=== PATIENT | female | born 1980 | race African-American/Black ===

== ENCOUNTER 2016-10-23 19:44 | Emergency (ER) | payer OTHER ==
[2016-10-23] MEDS ORDERED: NORCO-10 PO ONE (20:39)
[2016-10-23] MEDS ORDERED: PHENERGAN IM ONE (20:39)
--- NOTE | 2016-10-23 20:40 | PROVIDER DOCUMENTATION ---
HPI-General Adult - General Chief Complaint: Fall Stated Complaint: FELL 10/18/16, ABD PX Time Seen by Provider: 10/23/16 20:12 Source: patient Allergies/Adverse Reactions: Patient Allergies Allergy/AdvReac Type Severity Reaction Status Date / Time No Known Allergies Allergy Verified 04/27/16 05:43 Home Medications: Home Medication List Medication Instructions Recorded Confirmed Last Taken Type Linaclotide [Linzess] 04/05/16 Unknown History Aripiprazole [Abilify] 2 mg PO DAILY 10/23/16 10/23/16 Unknown History Cephalexin [Keflex] 500 mg PO BID #14 capsule 10/23/16 Unknown Rx Clonazepam [Klonopin] 1 mg PO DAILY 10/23/16 10/23/16 Unknown History Ibuprofen [Motrin] 800 mg PO Q8H PRN PRN #20 tablet 10/23/16 Unknown Rx Omeprazole [Prilosec] 20 mg PO DAILY@0700 #20 capsule 10/23/16 Unknown Rx Promethazine [Phenergan] 25 mg PO Q6H PRN PRN #20 tablet 10/23/16 Unknown Rx - History of Present Illness -Gen Adult Nature of Presenting Problems: Pt is a 35 y/o F c chief complaint of neck pain and lower back pain after she fell backwards and landed on her back several days ago. Pt denies any loss of sensation but she does state she has had increased frequency of urination c dysuria. Pt also reports R sided flank pain radiating to her groin and suprapubic tenderness. She also reports mild nausea but no abd pain or vomiting. Pt has a h/o multiple mental health dx. On arrival, pt is afebrile and in minimal distress. Review of Systems - Adult - REVIEW OF SYSTEMS - ADULT Constitutional: reports: no symptoms reported. denies: chills, fatique Eyes: reports: no symptoms reported. denies: blurred vision, double vision Ears, Nose, Mouth & Throat: reports: no symptoms reported. denies: ear pain, nose pain, throat pain Cardiovascular: reports: no symptoms reported. denies: chest pain, orthopnea Respiratory: reports: no symptoms reported. denies: cough, shortness of breath Gastrointestinal: reports: see HPI, nausea. denies: abdominal pain Genitourinary: reports: dysuria, flank pain, frequent UTI's, incontinence, urgency Musculoskeletal: reports: back pain, neck pain. denies: bone pain, joint pain Integumentary: reports: no symptoms reported. denies: hives, itching, rash Neurological: reports: no symptoms reported. denies: numbness, paresthesia Psychiatric: reports: no symptoms reported. denies: anxiety, emotional problems Endocrine: reports: no symptoms reported. denies: cold intolerance, heat intolerance Hematologic/Lymphatic: reports: no symptoms reported. denies: blood clots, low blood count Allergic/Immunologic: reports: no symptoms reported. denies: allergic reactions , food allergy All Other Systems: Reviewed and Negative Past History - Adult - PAST MEDICAL HISTORY-ADULT Review of Records: reports: Old Records Reviewed, Nursing Assessment Review, Medications Reviewed, Social history reviewed & non-contributory. Major Childhood Illnesses: reports: denies history Cardiovascular: reports: denies history Respiratory: reports: denies history Gastrointestinal: reports: denies history Obstetrical/Gynecological: reports: denies history Genitourinary: reports: denies history Musculoskeletal: reports: denies history Neurological: reports: denies history Psychiatric: reports: psychiatric problems, schizophrenia, other (paranoia) Endocrine/Immune: reports: denies history Other Conditions: reports: denies history - PRIOR SURGERIES/PROCEDURES Surgical/Procedure History: reports: BTL - PRIOR HOSPITALIZATIONS Prior Hospitalizations: reports: for similar symptoms, psychiatric or rehab - IMMUNIZATION STATUS Childhood Immunizations: See Nurse Assessment Flu Vaccine: See Nurse Assessment - FAMILY HISTORY Family History: reviewed, not pertinent - SOCIAL HISTORY Smoking: denies Substance Use: none/never Alcohol Use Frequency: never Living Situation: family Physical Exam-General - PHYSICAL EXAM-ADULT Initial Vital Signs Reviewed: Yes - CONSTITUTIONAL General Appearance: appears well, alert, no apparent distress, anxious - EYES Eyes: PERRL/EOMI, pink conjunctivae - HEAD, EARS, NOSE, MOUTH & THROAT HENMT: normocephalic/atraumatic, moist mucous membranes, normal ENT inspection - NECK Neck: full range of motion, supple, C-spine tenderness, tender lateral - RESPIRATORY Respiratory: chest non-tender, lungs clear, normal breath sounds - CARDIOVASCULAR Cardiovascular: normal peripheral pulses, regular rate, rhythm, no edema - GASTROINTESTINAL (ABDOMEN) Abdominal Exam: normal bowel sounds, soft, tenderness (suprapubic tenderness, L flank tenderness). negative: guarding, rebound, hepatomegaly, spleenomegaly, McBurney's point tenderness, Harrison's sign, obturator sign, prominent aortic pulsations, psoas, Rovsing's sign - LYMPHATIC Lymphatic: no adenopathy - MUSCULOSKELETAL Back Exam: muscle spasm Extremity: normal range of motion, non-tender, normal gait Progress - PLAN OF CARE/RESULTS Progress/Plan/Lab Results: Orders Category Date Time Status NPO Diet 10/23/16 20:38 Active CERVICAL SPINE W/O CONTRAST [CT] Stat Exams 10/23/16 20:38 Taken RENAL STONE SEARCH [CT] Stat Exams 10/23/16 20:38 Taken AMYLASE [CHEM] Stat Lab 10/23/16 21:15 Completed CBC WITH ELECTRONIC DIFF [HEME] Stat Lab 10/23/16 21:15 Completed COMPREHENSIVE METABOLIC PANEL [CHEM] Stat Lab 10/23/16 21:15 Completed LIPASE [CHEM] Stat Lab 10/23/16 21:[address] W/POSS RFLX CULT [URINALYSIS] Stat Lab 10/23/16 21:10 Completed URINE CULTURE [RM] Routine Lab 10/23/16 21:45 Received CefTRIAXONE [Rocephin] Med 10/23/16 22:21 Discontinued 1 gm IM NOW ONE Hydrocodone/APAP 10 mg/325 mg [[place]-10] Med 10/23/16 20:39 Discontinued 1 each PO NOW ONE Lidocaine 1% Pf [Xylocaine-Mpf 1%] Med 10/23/16 22:21 Discontinued 5 ml INJ NOW ONE Promethazine [Phenergan] Med 10/23/16 20:39 Discontinued 25 mg IM NOW ONE Laboratory Tests 10/23/16 10/23/16 10/23/16 21:10 21:15 21:15 WBC 11.23 H RBC 3.85 L Hgb 11.7 L Hct 34.8 L MCV 90.4 MCH 30.4 MCHC 33.6 RDW Std Deviation 12.7 Plt Count 146 MPV 10.2 Immature Gran % (Auto) 0.4 Neut % (Auto) 86.3 H Lymph % (Auto) 6.9 L [place] % (Auto) 6.1 Eos % (Auto) 0.1 Baso % (Auto) 0.2 Immature Gran # (Auto) 0.04 Neut # (Auto) 9.70 H Lymph # (Auto) 0.77 L [place] # (Auto) 0.69 H Eos # (Auto) 0.01 Baso # (Auto) 0.02 Sodium 136 Potassium 3.1 L Chloride 101 Carbon Dioxide 25 Anion Gap 10 BUN 5 L Creatinine 0.9 Estimated GFR/1.73 m2 > 60 BUN/Creatinine Ratio 6 Glucose 100 Calculated Osmolality 269 Calcium 9.5 Total Bilirubin 0.60 AST 29 ALT 39 H Alkaline Phosphatase 92 Total Protein 7.1 Albumin 4.0 Globulin 3.0 Albumin/Globulin Ratio 1.0 Amylase 37 Lipase 13 Urine Source CLEAN CATCH Urine Color YELLOW Urine Clarity CLEAR Urine pH 6.5 Ur Specific [place] 1.010 Urine Protein 1+(30 mg/dL) A Urine Ketones TRACE Urine Blood 4+ Urine Nitrite NEGATIVE Urine Bilirubin NEGATIVE Urine Urobilinogen 4+(12 mg/dL) Urine Microscopic RBC TNTC A Urine WBC 2+ A Urine Microscopic WBC 20-40 A Ur Epithelial Cells <10 Urine Bacteria 3+ Urine Glucose NEGATIVE Vital Signs - 24 hr 10/23/16 10/23/16 19:59 21:14 Temperature 98.2 F Pulse Rate 114 H Respiratory 18 Rate Blood Pressure 152/72 O2 Sat by Pulse 98 Oximetry - CT/MRI 1 CT Study: Cervical Spine Impression: Normal CT Results: nad - prelim radiology report 2 CT Study: Renal Stone Impression: Normal CT Results: nad - prelim radiology report Departure - Departure Time of Disposition Order: 22:23 DIAGNOSIS: Back pain Qualifiers: Back pain location: low back pain Chronicity: acute Back pain laterality: midline Sciatica presence: without sciatica Qualified Code(s): M54.5 - Low back pain Fall Qualifiers: Encounter type: initial encounter Qualified Code(s): W19.XXXA - Unspecified fall, initial encounter UTI (urinary tract infection) Qualifiers: Urinary tract infection type: site unspecified Hematuria presence: without hematuria Qualified Code(s): N39.0 - Urinary tract infection, site not specified Disposition: HOME 01 Certified Medical Emergency: Emergent Condition: Stable Prescriptions: Cephalexin [Keflex] 500 mg PO BID #14 capsule Ibuprofen [Motrin] 800 mg PO Q8H PRN PRN #20 tablet PRN Reason: inflammation Promethazine [Phenergan] 25 mg PO Q6H PRN PRN #20 tablet PRN Reason: Nausea Omeprazole [Prilosec] 20 mg PO DAILY@0700 #20 capsule Referrals: Yana Yin CRNP [Primary Care Provider] - Call for Appoint. -1 week Forms: Return to School/Parent Work Instructions: Back Pain, Adult, Ibuprofen tablets and capsules, Promethazine tablets, Urinary Tract Infection, Cephalexin tablets or capsules, Fall Prevention and Home Safety, Omeprazole tablets (OTC) Attestation - Physician/ NINA Attestation Patient care was provided by Advanced Practice Provider:: Yes Advanced Practice Provider:: Kamlesh Burrows Advanced Practice Provider documentation review:: The Mid-level provider documentation, treatment plan and medical decision making was reviewed by the physician who agrees with all treatment and medical decision making by the [facility]. Physician Attestation - Physician Attestation I, the provider, attest to the following statement:: Kamlesh Burrows Physician documentation Attestation:: This documentation recorded by the scribe accurately reflects the service I personally performed and the decisions made by me.
[2016-10-23 21:27] LABS: MANUAL DIFF NEEDED? NO
[2016-10-23 21:30] LABS: URINE SOURCE CLEAN CATCH
[2016-10-23 21:38] LABS: BASO% 0.2 % (0.0-0.8); EOS# 0.01 X1000 (0.0-0.7); EOS% 0.1 % (0.0-10.0); HEMATOCRIT 34.8 % (37.0-47.0); HEMOGLOBIN 11.7 g/dL (12.0-16.0); IMM GRAN# 0.04 X1000 (0.0-0.04); IMM GRAN% 0.4 % (0.0-0.5); LYMPH# 0.77 X1000 (1.2-3.4); LYMPH% 6.9 % (20.5-51.1); MCH 30.4 PG (27-31); MCHC 33.6 g/dL (33-37); MCV 90.4 FL (81-99); MONO# 0.69 X1000 (0.11-0.59); MONO% 6.1 % (1.7-9.3); MPV 10.2 FL (7.4-10.4); NEUT% 86.3 % (42.2-75.2); PLT 146 X1000 (130-400); RBC 3.85 XMIL (4.2-5.4)
[2016-10-23 21:43] LABS: BILIRUBIN URINE NEGATIVE (NEGATIVE); BLOOD URINE 4+ (NEGATIVE); CLARITY CLEAR (CLEAR); COLOR YELLOW; GLUCOSE URINE NEGATIVE (NEGATIVE); LEUKOCYTES URINE 2+ (NEGATIVE); NITRITE URINE NEGATIVE (NEGATIVE); PH URINE 6.5; PROTEIN URINE 1+(30 mg/dL) mg/dL (NEGATIVE); UROBILINOGEN URINE 4+(12 mg/dL)
[2016-10-23 21:44] LABS: URINE RBC TNTC /HPF (<10); URINE WBC 20-40 /HPF (<10)
[2016-10-23 21:45] LABS: URINE CULTURE PL NEEDED? YES; URINE EPITHELIAL CELLS <10 /HPF (<10)
[2016-10-23 21:56] LABS: AGAP 10; ALKALINE PHOSPHATASE 92 U/L (32-104); AMYLASE 37 U/L (20-200); BUN 5 mg/dL (8-22); CALCIUM 9.5 mg/dL (8.8-10.2); CHLORIDE 101 mmol/L (98-107); COSMO 269; GOT 29 U/L (10-30); GPT 39 U/L (10-36); LIPASE 13 U/L (13-60); POTASSIUM 3.1 mmol/L (3.5-5.1); SODIUM 136 mmol/L (136-145); TCO2 25 mmol/L (25-35); TOTAL PROTEIN 7.1 g/dL (6.3-8.3)
[2016-10-23] MEDS ORDERED: ROCEPHIN IM ONE (22:21)
[2016-10-23] MEDS ORDERED: XYLOCAINE-MPF 1% INJ ONE (22:21)
[2016-10-23 22:54] VITALS: BP 118/071
--- NOTE | 2016-10-24 09:03 | Diag Imaging Result Document ---
PROCEDURE NAME: CERVICAL SPINE W/O CONTRAST - 10/23/2016 CT OF THE CERVICAL SPINE: FINDINGS: There is some patient motion artifact. This is particularly notable at the C6 and C7 levels. No prevertebral soft-tissue swelling is present. There is incomplete bony fusion of the posterior arch of C1. There is no evidence of fracture or dislocation. The facets appear to be aligned. The upper portions of the lungs are normal in appearance. IMPRESSION: No evidence of acute bony disease.
--- NOTE | 2016-10-24 09:07 | Diag Imaging Result Document ---
PROCEDURE NAME: RENAL STONE SEARCH - 10/23/2016 CT UROGRAM WITHOUT CONTRAST: FINDINGS: There is a granuloma in the left lower lobe. There is no evidence of hydronephrosis or nephrolithiasis. The gallbladder is without evidence of calcified stones. There is stool throughout the colon. There is some gas and fluid in the small bowel. The appendix is normal in appearance. There is a small amount of free fluid in the cul-de-sac. There are numerous phleboliths in the pelvis. The regional skeleton appears to be intact. IMPRESSION: No evidence of stones or obstruction.
== END 2016-10-23 22:53 | disposition home or self-care (01) ==
LOC: P.ED 19:44
DX: N39.0 Urinary tract infection, site not specified (principal); M54.5 Low back pain; M54.2 Cervicalgia; R10.9 Unspecified abdominal pain; R10.31 Right lower quadrant pain; R10.819 Abdominal tenderness, unspecified site; R11.0 Nausea; R30.0 Dysuria; Z79.899 Other long term (current) drug therapy; R32 Unspecified urinary incontinence; R39.15 Urgency of urination; F20.9 Schizophrenia, unspecified; Z87.440 Personal history of urinary (tract) infections; W19.XXXA Unspecified fall, initial encounter
CPT/HCPCS: 72125; 74176; 80053; 81001; 82150; 83690; 85025; 87088; J0696; J2550